=== PATIENT | female | born 1940 | race Caucasian/White ===

== ENCOUNTER 2017-10-21 14:35 | Inpatient (IN) | payer MEDICARE ==
[~2017-10-21] VITALS: Ht 162.6 cm; Wt 59.0 kg
[2017-10-21] MEDS ORDERED: BLOOD THINNER (15:08)
[2017-10-21] MEDS ORDERED: ASPI-515 PO (15:08)
[2017-10-21] MEDS ORDERED: ATEN25TA PO (15:08)
[2017-10-21] MEDS ORDERED: SODIUM CHLORIDE FLUSH 10ML SYR IVF ONE (15:30)
[2017-10-21 15:52] LABS: HEMATOCRIT 49.4 % (34.6-47.8); HEMOGLOBIN 16.6 g/dL (11.7-16.4); WHITE BLOOD COUNT 14.6 x10^3/uL (3.4-10)
[2017-10-21 16:14] LABS: BLOOD UREA NITROGEN 21 mg/dL (7-18)
[2017-10-21] MEDS ORDERED: CEFTRIAXONE PMX 1GM/50ML 50 ML ONE (16:55)
[2017-10-21] MEDS ORDERED: CEFTRIAXONE 1,000 MG in DEXTROSE 5% 50 ML IVPB ONE (17:00)
[2017-10-21] MEDS ORDERED: AZITHROMYCIN 500 MG in SODIUM CHLORIDE 0.9% 250 ML IVPB ONE (17:00)
[2017-10-21] MEDS ORDERED: SODIUM CHLORIDE FLUSH 10ML SYR IVF PRN (17:00)
[2017-10-21] MEDS ORDERED: ENOXAPARIN 40 MG/0.4 ML SQ SCH (20:00)
[2017-10-21] MEDS ORDERED: BISACODYL 10 MG SUPP PR PRN (20:00)
[2017-10-21] MEDS ORDERED: ACETAMINOPHEN 325 MG TABLET PO PRN (20:00)
[2017-10-21] MEDS ORDERED: FUROSEMIDE 20 MG/2 ML IV ONE (20:00)
[2017-10-21] MEDS ORDERED: DOCUSATE 100 MG CAPSULE PO PRN (20:00)
[2017-10-21] MEDS ORDERED: POLYETHYLENE GLYCOL 17 GM PACKET PO PRN (20:00)
[2017-10-21 20:10] VITALS: BP 113/79
[2017-10-21 20:36] LABS: IS PT STATUS REG ER OR PRE ER? NO
[2017-10-21] MEDS ORDERED: DOXYCYCLINE 100MG TABLET PO SCH (21:00)
[2017-10-21] MEDS ORDERED: MAGNESIUM SULFATE PMX 2GM/50ML 50 ML IV ONE (22:00)
[2017-10-21 23:38] LABS: PATH.CAST-FLAG NOT PRESENT; SPERM-FLAG NOT PRESENT; SRC-FLAG NOT PRESENT; XTAL-FLAG NOT PRESENT; YLC-FLAG NOT PRESENT
[2017-10-22 02:05] LABS: ASPARTATE AMINO TRANSFERASE 13 U/L (15-37); BLOOD UREA NITROGEN 19 mg/dL (7-18)
[2017-10-22 02:12] VITALS: BP 111/73
[2017-10-22 02:12] LABS: HEMATOCRIT 43.6 % (34.6-47.8); HEMOGLOBIN 14.4 g/dL (11.7-16.4)
[2017-10-22 02:15] LABS: IS PT STATUS REG ER OR PRE ER? NO
[2017-10-22] MEDS ORDERED: APIX5TAB PO ×2 (06:58)
[2017-10-22] MEDS ORDERED: LEVO500T47 PO (06:58)
[2017-10-22] MEDS ORDERED: LEVOFLOXACIN 500 MG TABLET PO SCH (07:00)
[2017-10-22] MEDS ORDERED: ATENOLOL 50 MG TABLET ONE ×2 (07:38→07:40)
[2017-10-22] MEDS ORDERED: CLOPIDOGREL 75 MG TABLET ONE (07:38)
[2017-10-22] MEDS ORDERED: APIXABAN 5 MG TABLET ONE (07:39)
[2017-10-22] MEDS ORDERED: ASPIRIN 81 MG TABLET EC ONE (07:39)
[2017-10-22 07:50] VITALS: BP 116/78
[2017-10-22] MEDS ORDERED: ENOXAPARIN 60 MG/0.6 ML SQ SCH (08:00)
[2017-10-22] MEDS ORDERED: ASPIRIN 81 MG TABLET EC PO SCH (09:00)
[2017-10-22] MEDS ORDERED: ATENOLOL 25 MG TABLET PO SCH (09:00)
[2017-10-22] MEDS ORDERED: APIXABAN 5 MG TABLET PO SCH (09:00)
[2017-10-22] MEDS ORDERED: CLOPIDOGREL 75 MG TABLET PO SCH (09:00)
[2017-10-22 13:36] VITALS: BP 122/73
[2017-10-22] MEDS ORDERED: CEFTRIAXONE PMX 1GM/50ML 50 ML IV SCH (17:00)
== END 2017-10-22 17:06 | disposition home or self-care (01) | DRG 682 ==
LOC: ED 16:36 → EDIP 16:46 → 5SO 18:44
PROVIDERS: ADMIT Internal Medicine; ATTEND Hospitalist
DX: N17.9 Acute kidney failure, unspecified (principal); J18.0 Bronchopneumonia, unspecified organism; J96.01 Acute respiratory failure with hypoxia; E43 Unspecified severe protein-calorie malnutrition; I50.41 Acute combined systolic (congestive) and diastolic (congestive) heart failure; I82.411 Acute embolism and thrombosis of right femoral vein; I11.0 Hypertensive heart disease with heart failure; I44.7 Left bundle-branch block, unspecified; I82.412 Acute embolism and thrombosis of left femoral vein; I82.431 Acute embolism and thrombosis of right popliteal vein; M54.9 Dorsalgia, unspecified; E78.00 Pure hypercholesterolemia, unspecified; E78.5 Hyperlipidemia, unspecified; Z79.01 Long term (current) use of anticoagulants; Z79.02 Long term (current) use of antithrombotics/antiplatelets; Z79.82 Long term (current) use of aspirin; Z79.899 Other long term (current) drug therapy; Z82.3 Family history of stroke; Z85.820 Personal history of malignant melanoma of skin; Z86.73 Personal history of transient ischemic attack (TIA), and cerebral infarction without residual deficits; Z87.891 Personal history of nicotine dependence; Z68.22 Body mass index [BMI] 22.0-22.9, adult
CPT/HCPCS: 36415; 71020; 80048; 80053; 80061; 81001; 82040; 83605; 83735; 83880; 84100; 84145; 84443; 84484; 85025; 85610; 85730; 87040; 93005; 93306; 93970; 96365; 96367; J0456; J0696; J1650; J1940; J3475; J7050